=== PATIENT | male | born 1970 | race African-American/Black ===

== ENCOUNTER 2020-10-13 11:04 | Emergency (ER) | payer OTHER ==
[~2020-10-13] VITALS: Ht 182.9 cm; Wt 90.7 kg
[2020-10-13] MEDS ORDERED: Omnipaque-300 100ml vial INJ PRN (11:30)
[2020-10-13] MEDS ORDERED: Dicyclomine HCl 10mg/5ml oral soln ORAL ONE (11:30)
--- NOTE | 2020-10-13 11:30 | NUR ---
ED Nurse Note: Pt ambulated to ED from home d/t abdominal pain on the L side region accompanied by cramping that has been going on for 4 days. Pt also complains of low back pain but denies any nausea/vomiting/diarrhea. Pt is AOx4, calm and cooperative to care, VSS, on RA, afebrile on triage.
[2020-10-13 11:44] VITALS: BP 125/83
[2020-10-13 11:44] LABS: HEMOGLOBIN 16.6 G/DL (14.2-18.0); MEAN CORPUSCULAR VOLUME 101 FL (80-99); PLATELET COUNT 163 K/UL (150-450); RED BLOOD COUNT 5.03 M/UL (4.70-6.10); RED CELL DISTRIBUTION WIDTH 11.7 % (11.6-14.8); WHITE BLOOD COUNT 3.2 K/UL (4.8-10.8)
[2020-10-13 11:46] LABS: BASOPHILS % (AUTO) 1.3 % (0.0-2.0); EOSINOPHILS % (AUTO) 0.1 % (0.0-3.0); LYMPHOCYTES % (AUTO) 35.3 % (20.0-45.0); MONOCYTES % (AUTO) 10.5 % (1.0-10.0); NEUTROPHILS % (AUTO) 52.8 % (45.0-75.0)
[2020-10-13 11:49] LABS: APPEARANCE,URINE CLEAR; BILIRUBIN, URINE NEGATIVE (NEGATIVE); GLUCOSE, URINE (UA) NEGATIVE (NEGATIVE); KETONES,URINE NEGATIVE (NEGATIVE); LEUKOCYTE ESTERASE ,URINE NEGATIVE (NEGATIVE); NITRITE,URINE NEGATIVE (NEGATIVE); PH,URINE 6.5 (4.5-8.0); PROTEIN,URINE 1+ (NEGATIVE); UROBILINOGEN,URINE NORMAL MG/DL (0.0-1.0)
[2020-10-13 11:56] LABS: COLOR,URINE YELLOW
[2020-10-13] MEDS ORDERED: Ketorolac 30mg Inj IV ONE (12:00)
[2020-10-13 12:04] LABS: CALCIUM 8.7 MG/DL (8.5-10.1); CREATININE 1.3 MG/DL (0.55-1.30); POTASSIUM 4.1 MMOL/L (3.5-5.1)
[2020-10-13 12:08] LABS: ALBUMIN 4.4 G/DL (3.4-5.0); BILIRUBIN,TOTAL 0.6 MG/DL (0.2-1.0)
--- NOTE | 2020-10-13 12:13 | Emergency Room Report ---
History of Present Illness General Chief Complaint: Abdominal Pain Source: Patient Present Illness HPI 50-year-old male with a history of psoriasis on Humira here with left lower quadrant abdominal pain. Patient says that the pain is sharp in nature, located in the left lower quadrant, comes and goes and does not otherwise radiate. Has been taking Tylenol and ibuprofen for symptoms. Has been having abdominal bloating and some loose stool earlier today. Pain is 5 out of 10 in intensity. No headache, vision change, fevers, chills, chest pain, palpitation, shortness of breath, back pain, other abdominal pain, nausea, vomiting, no dysuria. Allergies: Coded Allergies: CHOCOLATE FLAVOR (Verified Allergy, Severe, Anaphylaxis, 10/13/20) COVID-19 Screening Contact w/high risk pt: No Experienced COVID-19 symptoms?: No COVID-19 Testing performed MANAGER STORE: No COVID-19 Screening: Negative COVID-19 COVID-19 Testing Source: clinic Nursing Documentation-[facility] Past Medical History: No History, Except For Review of Systems All Other Systems: negative except mentioned in HPI Physical Exam Vital Signs Date Time Temp Pulse Resp B/P (MAP) Pulse Ox O2 Delivery O2 Flow Rate FiO2 10/13/20 11:16 98.2 57 18 125/83 (97) 97 Room Air Sp02 EP Interpretation: reviewed, normal General Appearance: no apparent distress, alert, non-toxic Head: normocephalic, atraumatic Eyes: bilateral eye normal inspection, bilateral eye PERRL ENT: hearing grossly normal, normal pharynx, no angioedema, normal voice Neck: full range of motion, supple/symm/no masses Respiratory: chest non-tender, lungs clear, normal breath sounds, speaking full sentences Cardiovascular #1: regular rate, rhythm, no edema Cardiovascular #2: 2+ carotid (R), 2+ carotid (L), 2+ radial (R), 2+ radial (L), 2+ dorsalis pedis (R), 2+ dorsalis pedis (L) Gastrointestinal: normal bowel sounds, soft, non-distended, no guarding, no rebound, other - Mild left lower quadrant tenderness on palpation. No rebound or guarding. No distention Rectal: deferred Genitourinary: normal inspection, no CVA tenderness Musculoskeletal: back normal, normal range of motion, gait/station normal, non- tender Neurologic: alert, motor strength/tone normal, sensory intact, responsive, speech normal Psychiatric: judgement/insight normal, memory normal, mood/affect normal, no suicidal/homicidal ideation Lymphatic: no adenopathy Medical Decision Making Diagnostic Impression: Primary Impression: Pneumonia ER Course CT abd pel: IMPRESSION: * Multifocal patchy opacities partially visualized in the lung bases concerning for pneumonia. Possibility of atypical or viral pneumonia can be considered. Please correlate clinically. * Mild thickening of the wall of the descending and sigmoid colon which may suggest a mild nonspecific colitis. Findings may be exaggerated due to clonic underdistention. * No evidence of bowel obstruction. No fringe peritoneal air or fluid. Normal appendix. * Thickening of the wall urinary bladder which may be related to under distention versus cystitis. Correlate with urinalysis. 50-year-old male here with abdominal pain. Patient says abdominal pain was mainly left upper quadrant. He had an unremarkable physical examination. CT abdomen pelvis revealed multifocal patchy opacities in the lung bases concerning for pneumonia. Patient normal vital signs in the emergency department. He had a low white blood cell count but otherwise normal lab values. Chest x-ray largely unremarkable. The patient is given a prescription for doxycycline and told to follow-up with his primary care provider or come back to the emergency department she has any worsening symptoms. Discharged in stable condition. Last Vital Signs Date Time Temp Pulse Resp B/P (MAP) Pulse Ox O2 Delivery O2 Flow Rate FiO2 10/13/20 11:44 98.2 18 125/83 97 Room Air 10/13/20 11:44 57 Scripts Ibuprofen* (MOTRIN*) 600 Mg Tablet 600 MG ORAL Q6H PRN for FOR PAIN, #20 TAB 0 Refills Prov: Zach Walsh M.D. 10/13/20 Doxycycline Monohydrate* (DOXYCYCLINE MONOHYDRATE*) 100 Mg Capsule 100 MG ORAL Q12H, #14 CAP 0 Refills Prov: Zach Walsh M.D. 10/13/20 Zach Walsh M.D. Oct 13, 2020 12:13
--- NOTE | 2020-10-13 13:00 | NUR ---
ED Nurse Note: Pt returned from CT on stable condition
--- NOTE | 2020-10-13 13:28 | Diagnostic Imaging Report ---
Indication: Abdominal pain Technique: CT of the abdomen and pelvis utilizing automated exposure control with intravenous contrast. Venous scanning performed. Axial, sagittal and coronal reformats presented. CT dose: Total DLP 388.9 mGycm; CTDI vol 7 mGy Comparison: None Findings: Patchy opacities are partially visualized in the lung bases concerning for multifocal pneumonia. No pleural effusion or pneumothorax. Partially imaged heart is normal in size. No pericardial effusion. Liver contour is smooth. No focal hepatic mass lesion is identified on this single phase exam. Veins and portal veins are patent. There are no CT evident gallstones or pericholecystic inflammatory changes. Spleen, adrenal glands and pancreas unremarkable. No peripancreatic inflammatory changes or fluid collections. The kidneys enhance symmetrically. There is an extra renal pelvis on the left. No hydronephrosis or perinephric fluid collection. There is thickening of the wall of the bladder which may be related to under distention versus cystitis. Prostate is normal in size. There is no free intraperitoneal air or fluid. There is no evidence of small bowel obstruction. Possible mild thickening of the wall of the sigmoid and descending colon. No significant pericolonic inflammatory changes. Appendix is normal caliber. No peritendinous inflammatory changes. Abdominal aorta is normal in caliber with mild atherosclerotic calcification at the aortic bifurcation. No pathologic versus conglomerate lymphadenopathy is identified. No acute osseous abnormality. IMPRESSION: * Multifocal patchy opacities partially visualized in the lung bases concerning for pneumonia. Possibility of atypical or viral pneumonia can be considered. Please correlate clinically. * Mild thickening of the wall of the descending and sigmoid colon which may suggest a mild nonspecific colitis. Findings may be exaggerated due to clonic underdistention. * No evidence of bowel obstruction. No fringe peritoneal air or fluid. Normal appendix. * Thickening of the wall urinary bladder which may be related to under distention versus cystitis. Correlate with urinalysis. Salient findings discussed with Dr. Walsh of the emergency Department. The CT scanner at [facility] is accredited by the [employer] and the scans are performed using protocols designed to limit radiation exposure to as low as reasonably achievable to attain images of sufficient resolution adequate for diagnostic evaluation.
[2020-10-13] MEDS ORDERED: DOXYCYCLINE MO100 MG ORAL (13:43)
[2020-10-13] MEDS ORDERED: IBUPROFEN600 M1 ORAL (13:43)
[2020-10-13 13:53] VITALS: BP 130/82
--- NOTE | 2020-10-13 13:53 | NUR ---
ER DISCHARGE NOTE: Patient is cleared to be discharged per ERMD, pt is aox4, on room air, with stable vital signs. pt was given dc and prescription instructions, pt was able to verbalize understanding, pt id band and iv site removed without complications. pt is able to ambulate with steady gait. pt took all belongings.
--- NOTE | 2020-10-13 16:35 | Diagnostic Imaging Report ---
Indication: Cough Technique: XRAY Chest 1v Comparison: None Findings: No radiographically appreciable focal airspace consolidation. No pleural effusion or pneumothorax. Heart size and mediastinal contours are within normal limits. No acute osseous abnormality. IMPRESSION: Subtle patchy opacities noted in the lung bases on CT not appreciated definitively on chest x-ray.
== END 2020-10-13 13:53 | disposition home or self-care (01) ==
LOC: EMR 11:35
DX: J18.9 Pneumonia, unspecified organism (principal); Z91.018 Allergy to other foods
CPT/HCPCS: 36415; 71045; 74177; 80053; 81003; 83690; 85025; 96361; 96374; 96375; J1885; J2405; J7030; Q9965; Z7502; 99284

== ENCOUNTER 2020-11-05 07:12 | Emergency (ER) | payer OTHER ==
[~2020-11-05] VITALS: Ht 182.9 cm; Wt 86.2 kg
[~2020-11-05 07:12] MED LIST: DOXYCYCLINE MO100 MG ORAL; IBUPROFEN600 M1 ORAL
[2020-11-05 07:21] VITALS: BP 148/83
[2020-11-05] MEDS ORDERED: Ketorolac 30mg Inj IV ONE (07:45)
--- NOTE | 2020-11-05 07:53 | Emergency Room Report ---
History of Present Illness General Chief Complaint: Pain Source: Patient Present Illness HPI 50-year-old male here with abdominal pain. The patient was here approximately 4 weeks ago for similar complaints. He underwent a CT scan that showed no abnormalities within the abdomen, however he had evidence of pneumonia at the lung bases. Patient then went to an outpatient testing center where he tested positive for COVID-19. Says he has been doing well except will intermittently get sharp abdominal pain. Pain sharp in nature, located in the bilateral upper abdominal quadrants and occasionally radiates to his bilateral flanks. Denies fevers, chills, chest pain, palpitation, shortness of breath, nausea, vomiting, dysuria. He will intermittently have loose stool. Allergies: Coded Allergies: CHOCOLATE FLAVOR (Verified Allergy, Severe, Anaphylaxis, 10/13/20) COVID-19 Screening Contact w/high risk pt: No Experienced COVID-19 symptoms?: No COVID-19 Testing performed HAZMAT TANKER DRIVER: No Nursing Documentation-[facility] Past Medical History: No History, Except For Review of Systems All Other Systems: negative except mentioned in HPI Physical Exam Vital Signs Date Time Temp Pulse Resp B/P (MAP) Pulse Ox O2 Delivery O2 Flow Rate FiO2 11/05/20 07:16 98.4 74 17 148/83 (104) 95 Room Air Sp02 EP Interpretation: reviewed, normal General Appearance: no apparent distress, alert, non-toxic Head: normocephalic, atraumatic Eyes: bilateral eye normal inspection, bilateral eye PERRL ENT: hearing grossly normal, normal pharynx, no angioedema, normal voice Neck: full range of motion, supple/symm/no masses Respiratory: chest non-tender, lungs clear, normal breath sounds, speaking full sentences Cardiovascular #1: regular rate, rhythm, no edema Cardiovascular #2: 2+ carotid (R), 2+ carotid (L), 2+ radial (R), 2+ radial (L), 2+ dorsalis pedis (R), 2+ dorsalis pedis (L) Gastrointestinal: normal bowel sounds, non tender, soft, non-distended, no guarding, no rebound Rectal: deferred Genitourinary: normal inspection, no CVA tenderness Musculoskeletal: back normal, normal range of motion, gait/station normal, non- tender Neurologic: alert, motor strength/tone normal, oriented x3, sensory intact, responsive, speech normal Psychiatric: judgement/insight normal, memory normal, mood/affect normal, no suicidal/homicidal ideation Lymphatic: no adenopathy Medical Decision Making Diagnostic Impression: Primary Impression: Abdominal pain Additional Impression: COVID-19 ER Course Laboratory Tests Test 11/05/20 07:52 White Blood Count 3.6 K/UL (4.8-10.8) L Red Blood Count 4.53 M/UL (4.70-6.10) L Hemoglobin 14.5 G/DL (14.2-18.0) Hematocrit 41.6 % (42.0-52.0) L Mean Corpuscular Volume 92 FL (80-99) Mean Corpuscular Hemoglobin 32.1 PG (27.0-31.0) H Mean Corpuscular Hemoglobin Concent 34.9 G/DL (32.0-36.0) Red Cell Distribution Width 14.1 % (11.6-14.8) Platelet Count 190 K/UL (150-450) Mean Platelet Volume 7.5 FL (6.5-10.1) Neutrophils (%) (Auto) % (45.0-75.0) Lymphocytes (%) (Auto) % (20.0-45.0) Monocytes (%) (Auto) % (1.0-10.0) Eosinophils (%) (Auto) % (0.0-3.0) Basophils (%) (Auto) % (0.0-2.0) Neutrophils % (Manual) Pending Lymphocytes % (Manual) Pending Platelet Estimate Pending Platelet Morphology Pending Urine Color Pale yellow Urine Appearance Clear Urine pH 8 (4.5-8.0) Urine Specific [place] 1.010 (1.005-1.035) Urine Protein Negative (NEGATIVE) Urine Glucose (UA) Negative (NEGATIVE) Urine Ketones Negative (NEGATIVE) Urine Blood Negative (NEGATIVE) Urine Nitrite Negative (NEGATIVE) Urine Bilirubin Negative (NEGATIVE) Urine Urobilinogen Normal MG/DL (0.0-1.0) Urine Leukocyte Esterase Negative (NEGATIVE) Sodium Level 138 MMOL/L (136-145) Potassium Level 4.1 MMOL/L (3.5-5.1) Chloride Level 103 MMOL/L (98-107) Carbon Dioxide Level 33 MMOL/L (21-32) H Anion Gap 2 mmol/L (5-15) L Blood Urea Nitrogen 13 mg/dL (7-18) Creatinine 1.1 MG/DL (0.55-1.30) Estimated Glomerular Filtration Rate > 60 mL/min (>60) Glucose Level 99 MG/DL (74-106) Calcium Level 9.0 MG/DL (8.5-10.1) Total Bilirubin 0.8 MG/DL (0.2-1.0) Aspartate Amino Transferase (AST) 25 U/L (15-37) Alanine Aminotransferase (ALT) 46 U/L (12-78) Alkaline Phosphatase 68 U/L (46-116) Total Protein 7.5 G/DL (6.4-8.2) Albumin 3.8 G/DL (3.4-5.0) Globulin 3.7 g/dL Albumin/Globulin Ratio 1.0 (1.0-2.7) Lipase 83 U/L (73-393) Chest x-ray: No infiltrate/effusion. Mediastinum within normal limits. No consolidation. No free air under the diaphragm. No bony abnormalities 50-year-old male tested positive for COVID-19 approximately 4 weeks ago here with chronic abdominal pain that has been ongoing ever since his infection. He was hemodynamically stable and had a largely benign physical examination in the emergency department. Did not have any abdominal pain elicited on palpation. CBC, CMP, urinalysis all unremarkable. Chest x-ray normal. Patient was given Toradol with good resolution of his pain. No indication for repeat CT scan at this time. The patient was given a prescription for ibuprofen and Bentyl. Told to come back to the emergency department if things worsen. Discharged in stable condition. Last Vital Signs Date Time Temp Pulse Resp B/P (MAP) Pulse Ox O2 Delivery O2 Flow Rate FiO2 11/05/20 07:21 98.4 74 17 148/83 95 Room Air Scripts Ibuprofen* (MOTRIN*) 600 Mg Tablet 600 MG ORAL Q6H PRN for FOR PAIN, #20 TAB 0 Refills Prov: Zach Walsh M.D. 11/05/20 Dicyclomine Hcl* (DICYCLOMINE HCL*) 10 Mg Capsule 10 MG ORAL TID, #10 CAP Prov: Zach Walsh M.D. 11/05/20 Zach Walsh M.D. Nov 05, 2020 07:53
[2020-11-05 08:09] LABS: HEMATOCRIT 41.6 % (42.0-52.0); HEMOGLOBIN 14.5 G/DL (14.2-18.0); MEAN CORPUSCULAR VOLUME 92 FL (80-99); PLATELET COUNT 190 K/UL (150-450); RED BLOOD COUNT 4.53 M/UL (4.70-6.10); RED CELL DISTRIBUTION WIDTH 14.1 % (11.6-14.8); WHITE BLOOD COUNT 3.6 K/UL (4.8-10.8)
[2020-11-05 08:14] LABS: APPEARANCE,URINE CLEAR; BILIRUBIN, URINE NEGATIVE (NEGATIVE); COLOR,URINE PALE YELLOW; GLUCOSE, URINE (UA) NEGATIVE (NEGATIVE); KETONES,URINE NEGATIVE (NEGATIVE); LEUKOCYTE ESTERASE ,URINE NEGATIVE (NEGATIVE); NITRITE,URINE NEGATIVE (NEGATIVE); PH,URINE 8 (4.5-8.0); PROTEIN,URINE NEGATIVE (NEGATIVE); UROBILINOGEN,URINE NORMAL MG/DL (0.0-1.0)
[2020-11-05 08:21] LABS: ANION GAP 2 mmol/L (5-15); BLOOD UREA NITROGEN 13 mg/dL (7-18); CARBON DIOXIDE 33 MMOL/L (21-32); CHLORIDE 103 MMOL/L (98-107); CREATININE 1.1 MG/DL (0.55-1.30); POTASSIUM 4.1 MMOL/L (3.5-5.1); SODIUM 138 MMOL/L (136-145)
[2020-11-05 08:25] LABS: ALANINE AMINOTRANSFERASE 46 U/L (12-78); ALBUMIN 3.8 G/DL (3.4-5.0); ALKALINE PHOSPHATASE 68 U/L (46-116); ASPARTATE AMINO TRANSFERASE 25 U/L (15-37); BILIRUBIN,TOTAL 0.8 MG/DL (0.2-1.0)
[2020-11-05] MEDS ORDERED: IBUPROFEN600 M1 ORAL (08:35)
[2020-11-05] MEDS ORDERED: DICYCLOMINE HCL10 MG ORAL (08:35)
[2020-11-05 08:47] VITALS: BP 135/72
--- NOTE | 2020-11-05 15:29 | Diagnostic Imaging Report ---
Indication: Reason For Exam: CP Technique: Single AP view of the chest. Comparison: Chest radiograph dated 10/13/2020 Findings: The cardiomediastinal silhouette is within normal limits and unchanged in appearance.. There is no focal consolidation, pneumothorax or pleural effusion. Osseous structures demonstrate no acute abnormality. IMPRESSION: No radiographic evidence of acute pulmonary pulmonary process.
== END 2020-11-05 08:47 | disposition home or self-care (01) ==
LOC: EMR 08:13
DX: U07.1 COVID-19 (principal); R10.12 Left upper quadrant pain; R10.11 Right upper quadrant pain; Z91.018 Allergy to other foods
CPT/HCPCS: 36415; 71045; 80053; 81003; 83690; 85007; 85025; 96374; J1885; Z7502; 99284